=== PATIENT | female | born 1945 | race African-American/Black ===

== ENCOUNTER 2023-02-05 14:42 | Inpatient (IN) | payer MEDICARE, OTHER ==
[~2023-02-05] VITALS: Ht 157.5 cm; Wt 78.9 kg
[2023-02-05 15:59] LABS: BASOPHILS # (AUTO) 0.1 K/uL (0.0-0.2); BASOPHILS % (AUTO) 1.2 % (0.0-2.0); EOSINOPHILS # (AUTO) 0.1 K/uL (0.0-0.7); EOSINOPHILS % (AUTO) 1.4 % (0.0-6.0); HEMATOCRIT 37 % (33-45); HEMOGLOBIN 12.1 g/dL (11.5-14.8); LYMPHOCYTES # (AUTO) 1.3 K/uL (0.8-4.8); LYMPHOCYTES % (AUTO) 19.2 % (20.0-44.0); MEAN CORPUSCULAR HEMOGLOBIN 31 PG (26.0-33.0); MEAN CORPUSCULAR HGB CONC 33 g/dl (31.0-36.0); MEAN CORPUSCULAR VOLUME 93 fL (82-100); MONOCYTES # (AUTO) 0.8 K/uL (0.1-1.30); MONOCYTES % (AUTO) 11.1 % (2.0-12.0); NEUTROPHILS # (AUTO) 4.6 K/uL (1.8-8.9); NEUTROPHILS % (AUTO) 67.1 % (43.0-81.0); PLATELET COUNT (AUTO) 230 K/uL (150-450); RED BLOOD CELL COUNT(AUTO) 3.96 MIL/uL (4.0-5.2); RED CELL DISTRIBUTION WIDTH 15.5 % (11.5-15.0); WHITE BLOOD COUNT (AUTO) 6.9 K/uL (4.3-11.0)
[2023-02-05 16:14] LABS: INR 1.16 (0.91-1.10); PROTHROMBIN TIME 12.1 SECS (9.2-11.1)
[2023-02-05 16:34] LABS: MAGNESIUM 1.7 mg/dL (1.8-2.4)
[2023-02-05 16:42] LABS: LACTIC ACID 1.2 mmol/L (0.4-2.0)
[2023-02-05 16:49] LABS: THYROID STIMULATING HORMONE 1.758 uIU/mL (0.358-3.74)
[2023-02-05 16:54] LABS: ALANINE AMINOTRANSFERASE 135 U/L (12-78); ALBUMIN 3.2 g/dL (3.4-5.0); ALKALINE PHOSPHATASE 105 U/L (46-116); ASPARTATE AMINOTRANSFERASE 85 U/L (15-37); BILIRUBIN,DIRECT 0.1 mg/dL (0.0-0.2); BILIRUBIN,TOTAL 0.5 mg/dL (0.2-1.0); CALCIUM, SERUM 9.2 mg/dL (8.5-10.1); CARBON DIOXIDE 21 mmol/L (21-32); CREATININE 1.2 mg/dL (0.6-1.3); GLUCOSE 148 mg/dL (74-106); NT-PRO BNP 3276 pg/mL (0-125); TOTAL PROTEIN, SERUM 6.4 g/dL (6.4-8.2); UREA NITROGEN, BLOOD 19 mg/dL (7-18)
[2023-02-05 17:22] LABS: CHLORIDE 108 mmol/L (98-107); POTASSIUM 3.3 mmol/L (3.5-5.1); SODIUM SERUM 143 mmol/L (136-145)
[2023-02-05] MEDS ORDERED: FUROSEMIDE 40 MG/4 ML VIAL IV ONE (18:00)
[2023-02-05] MEDS ORDERED: SERT100T PO (18:18)
[2023-02-05] MEDS ORDERED: FURO20TA4 PO (18:18)
[2023-02-05] MEDS ORDERED: POTA10TA10 PO (18:18)
[2023-02-05] MEDS ORDERED: APIX5TAB PO (18:18)
[2023-02-05] MEDS ORDERED: METO25TA6 PO (18:18)
[2023-02-05] MEDS ORDERED: ROSU40TA PO (18:18)
[2023-02-05] MEDS ORDERED: FUROSEMIDE 40 MG/4 ML VIAL ONE (18:30)
[2023-02-05] MEDS ORDERED: MAG HYDROX/AL HYDROX/SIMETH 30 ML UDC PO PRN (21:00)
[2023-02-05] MEDS ORDERED: MAGNESIUM HYDROXIDE 30 ML UDC PO PRN (21:00)
[2023-02-05] MEDS ORDERED: Z GUARD REMEDY 4 OZ OINT TP PRN (21:00)
[2023-02-05] MEDS ORDERED: ONDANSETRON HCL/PF 4 MG/2 ML VIAL IVP PRN (21:00)
[2023-02-05] MEDS ORDERED: ZOLPIDEM TARTRATE 5 MG TABLET PO PRN (21:00)
[2023-02-05] MEDS ORDERED: ACETAMINOPHEN 325 MG TABLET PO PRN (21:00)
[2023-02-05 22:58] VITALS: BP 134/85; TEMP 97.2; O2SAT 98
[2023-02-06 08:00] VITALS: BP 155/111; TEMP 98.2; O2SAT 98
[2023-02-06] MEDS: METOPROLOL TARTRATE 50 MG TABLET PO SCH ×2 (08:18→17:58)
[2023-02-06] MEDS: SERTRALINE HCL 50 MG TABLET PO SCH (08:18)
[2023-02-06] MEDS: APIXABAN 5 MG TABLET PO SCH ×2 (08:19→17:55)
[2023-02-06 08:33] LABS: BASOPHILS # (AUTO) 0.1 K/uL (0.0-0.2); EOSINOPHILS # (AUTO) 0.1 K/uL (0.0-0.7); EOSINOPHILS % (AUTO) 1.6 % (0.0-6.0); HEMATOCRIT 37 % (33-45); HEMOGLOBIN 12.4 g/dL (11.5-14.8); LYMPHOCYTES # (AUTO) 1.5 K/uL (0.8-4.8); LYMPHOCYTES % (AUTO) 19.8 % (20.0-44.0); MEAN CORPUSCULAR HEMOGLOBIN 31 PG (26.0-33.0); MEAN CORPUSCULAR HGB CONC 33 g/dl (31.0-36.0); MEAN CORPUSCULAR VOLUME 93 fL (82-100); MONOCYTES # (AUTO) 0.9 K/uL (0.1-1.30); MONOCYTES % (AUTO) 11.5 % (2.0-12.0); NEUTROPHILS % (AUTO) 66.1 % (43.0-81.0); PLATELET COUNT (AUTO) 200 K/uL (150-450); RED CELL DISTRIBUTION WIDTH 15.6 % (11.5-15.0); WHITE BLOOD COUNT (AUTO) 7.5 K/uL (4.3-11.0)
[2023-02-06 08:52] LABS: CALCIUM, SERUM 9.7 mg/dL (8.5-10.1); CARBON DIOXIDE 22 mmol/L (21-32); CHLORIDE 106 mmol/L (98-107); GLUCOSE 137 mg/dL (74-106); MAGNESIUM 1.7 mg/dL (1.8-2.4); PHOSPHORUS 4.2 mg/dL (2.5-4.9); POTASSIUM 3.2 mmol/L (3.5-5.1); SODIUM SERUM 143 mmol/L (136-145); UREA NITROGEN, BLOOD 22 mg/dL (7-18)
[2023-02-06] MEDS ORDERED: CARVEDILOL 12.5 MG TABLET PO SCH (09:00)
[2023-02-06] MEDS ORDERED: FUROSEMIDE 40 MG/4 ML VIAL IV SCH (09:00)
[2023-02-06] MEDS: FUROSEMIDE 40 MG/4 ML VIAL IV SCH ×3 (09:23→17:58)
[2023-02-06] MEDS: POTASSIUM CHLORIDE 20 MEQ TAB.PRT.SR PO SCH ×3 (09:23→11:25)
[2023-02-06] MEDS ORDERED: POTASSIUM CHLORIDE 20 MEQ TAB.PRT.SR PO SCH (11:00)
[2023-02-06] MEDS ORDERED: MAGNESIUM OXIDE 400 MG TABLET PO ONE (11:00)
[2023-02-06 12:00] VITALS: BP 113/85; TEMP 98.4; O2SAT 98
[2023-02-06 16:00] VITALS: BP 111/88; TEMP 98.1; O2SAT 98
[2023-02-06 16:36] LABS: APPEARANCE,URINE CLEAR (CLEAR); BILIRUBIN,URINE NEGATIVE (NEGATIVE); BLOOD, URINE NEGATIVE Ery/uL (NEGATIVE); COLOR,URINE YELLOW (YELLOW); KETONES,URINE NEGATIVE (NEGATIVE); LEUKOCYTE ESTERASE ,URINE NEGATIVE (NEGATIVE); NITRITE, URINE NEGATIVE (NEGATIVE); PH,URINE 5.5 (5.0-8.0); PROTEIN,URINE NEGATIVE (NEGATIVE); UGLUCOSE NEGATIVE (NEGATIVE); UROBILINOGEN,URINE 0.2 EU/dL (0.2)
[2023-02-06] MEDS ORDERED: ATORVASTATIN 40 MG TABLET PO SCH (18:00)
[2023-02-06 20:00] VITALS: BP 106/60; TEMP 98; O2SAT 100
[2023-02-07] VITALS: BP 110/65; TEMP 98; O2SAT 100
[2023-02-07 04:00] VITALS: BP 134/106; TEMP 97.9; O2SAT 100
[2023-02-07 07:11] LABS: BASOPHILS # (AUTO) 0.1 K/uL (0.0-0.2); BASOPHILS % (AUTO) 1.1 % (0.0-2.0); EOSINOPHILS # (AUTO) 0.1 K/uL (0.0-0.7); EOSINOPHILS % (AUTO) 2.3 % (0.0-6.0); HEMATOCRIT 34 % (33-45); HEMOGLOBIN 11.3 g/dL (11.5-14.8); LYMPHOCYTES # (AUTO) 1.2 K/uL (0.8-4.8); LYMPHOCYTES % (AUTO) 20.1 % (20.0-44.0); MEAN CORPUSCULAR HEMOGLOBIN 31 PG (26.0-33.0); MEAN CORPUSCULAR HGB CONC 33 g/dl (31.0-36.0); MEAN CORPUSCULAR VOLUME 93 fL (82-100); MONOCYTES # (AUTO) 0.7 K/uL (0.1-1.30); NEUTROPHILS # (AUTO) 3.8 K/uL (1.8-8.9); NEUTROPHILS % (AUTO) 64.5 % (43.0-81.0); PLATELET COUNT (AUTO) 195 K/uL (150-450); RED CELL DISTRIBUTION WIDTH 15.8 % (11.5-15.0); WHITE BLOOD COUNT (AUTO) 5.8 K/uL (4.3-11.0)
[2023-02-07 07:35] LABS: ALBUMIN 2.9 g/dL (3.4-5.0); BILIRUBIN,TOTAL 0.5 mg/dL (0.2-1.0); CALCIUM, SERUM 9.3 mg/dL (8.5-10.1); MAGNESIUM 1.7 mg/dL (1.8-2.4); PHOSPHORUS 3.7 mg/dL (2.5-4.9); POTASSIUM 3.4 mmol/L (3.5-5.1); TOTAL PROTEIN, SERUM 5.9 g/dL (6.4-8.2)
[2023-02-07 08:00] VITALS: BP 111/67; TEMP 98.5; O2SAT 100
[2023-02-07] MEDS: SERTRALINE HCL 50 MG TABLET PO SCH (08:28)
[2023-02-07] MEDS: METOPROLOL TARTRATE 50 MG TABLET PO SCH ×2 (08:29→17:18)
[2023-02-07] MEDS ORDERED: AMIODARONE 150 MG in IV D5W 100 ML IV ONE (08:30)
[2023-02-07] MEDS ORDERED: AMIODARONE 450 MG in IV D5W 250 ML IV PRN (08:30)
[2023-02-07] MEDS: APIXABAN 5 MG TABLET PO SCH ×2 (08:30→17:18)
[2023-02-07] MEDS ORDERED: AMIODARONE 450 MG in IV D5W 241 ML IV PRN (09:00)
[2023-02-07] MEDS ORDERED: POTASSIUM CHLORIDE 20 MEQ TAB.PRT.SR PO SCH (11:30)
[2023-02-07] MEDS ORDERED: MAGNESIUM OXIDE 400 MG TABLET PO ONE (11:30)
[2023-02-07 12:00] VITALS: BP 130/87; TEMP 98.7; O2SAT 95
[2023-02-07 16:00] VITALS: BP 106/75; TEMP 98.6; O2SAT 96
[2023-02-07 20:00] VITALS: BP 136/83; TEMP 99; O2SAT 98
[2023-02-08] VITALS (18 sets, daily range): BP systolic 114–162; BP diastolic 56–117; TEMP 98–98.8; O2SAT 98–100
[2023-02-08 07:45] LABS: CALCIUM, SERUM 9.4 mg/dL (8.5-10.1); CREATININE 1.1 mg/dL (0.6-1.3); MAGNESIUM 1.8 mg/dL (1.8-2.4); POTASSIUM 3.6 mmol/L (3.5-5.1)
[2023-02-08] MEDS: SERTRALINE HCL 50 MG TABLET PO SCH (09:33)
[2023-02-08] MEDS: METOPROLOL TARTRATE 50 MG TABLET PO SCH ×2 (09:33→17:30)
[2023-02-08] MEDS: APIXABAN 5 MG TABLET PO SCH ×2 (09:34→17:32)
[2023-02-08] MEDS ORDERED: ANESTHESIA TRAY IN PYXIS 1 EA TRAY MC ONE (12:39)
[2023-02-08] MEDS: AMIODARONE HCL 200 MG TABLET PO SCH ×2 (13:16→17:30)
[2023-02-09] VITALS: BP_SYST 139; BP_SYST 93; BP_DIAS 48; BP_DIAS 87; TEMP 98; O2SAT 98
[2023-02-09 04:00] VITALS: BP 135/87; TEMP 98; O2SAT 98
[2023-02-09 08:00] VITALS: BP 119/58; TEMP 97.5; O2SAT 99
[2023-02-09] MEDS: APIXABAN 5 MG TABLET PO SCH (09:04)
[2023-02-09] MEDS: SERTRALINE HCL 50 MG TABLET PO SCH (09:05)
[2023-02-09] MEDS: AMIODARONE HCL 200 MG TABLET PO SCH ×2 (09:06→12:15)
[2023-02-09] MEDS ORDERED: AMIO200T5 PO ×2 (11:56→12:08)
[2023-02-09 12:00] VITALS: BP 144/81; TEMP 98.3; O2SAT 100
[2023-02-09] MEDS ORDERED: POTA10CA43 PO (12:08)
[2023-02-09] MEDS ORDERED: SERT100T PO (12:08)
[2023-02-09] MEDS ORDERED: FURO-145 PO (12:08)
[2023-02-09] MEDS ORDERED: APIX5TAB4 PO (12:08)
[2023-02-09] MEDS ORDERED: ROSU40TA PO (12:08)
[2023-02-09 12:15] VITALS: BP 144/79
== END 2023-02-09 16:10 | disposition home or self-care (01) | DRG 291 ==
LOC: ER 14:45 → TELE1 19:27 → TELE-TD 02-07 19:23 → ICU 02-08 11:20 → TELE1 02-08 15:51
PROVIDERS: ADMIT Nurse Practitioner Acute Care; ATTEND Nurse Practitioner Acute Care
PROC: 05HB33Z Insertion of Infusion Device into Right Basilic Vein, Percutaneous Approach (ICD-10-PCS; principal; 2023-02-08)
PROC: 5A2204Z Restoration of Cardiac Rhythm, Single (ICD-10-PCS; 2023-02-09)
DX: I11.0 Hypertensive heart disease with heart failure (principal); I50.23 Acute on chronic systolic (congestive) heart failure; J96.01 Acute respiratory failure with hypoxia; E44.1 Mild protein-calorie malnutrition; I48.92 Unspecified atrial flutter; E88.09 Other disorders of plasma-protein metabolism, not elsewhere classified; Z95.0 Presence of cardiac pacemaker; Z79.899 Other long term (current) drug therapy; Z79.01 Long term (current) use of anticoagulants; I25.10 Atherosclerotic heart disease of native coronary artery without angina pectoris; Z95.1 Presence of aortocoronary bypass graft; E87.6 Hypokalemia; R74.01 Elevation of levels of liver transaminase levels; E78.5 Hyperlipidemia, unspecified; Z91.148 Patient's other noncompliance with medication regimen for other reason; Z87.891 Personal history of nicotine dependence; E66.9 Obesity, unspecified; Z68.33 Body mass index [BMI] 33.0-33.9, adult; G47.33 Obstructive sleep apnea (adult) (pediatric); E83.42 Hypomagnesemia; F32.A Depression, unspecified; Z87.440 Personal history of urinary (tract) infections; R73.9 Hyperglycemia, unspecified; I48.0 Paroxysmal atrial fibrillation
CPT/HCPCS: 36415; 71045-TC; 80048-TC; 80053-TC; 80076-TC; 83605-TC; 83735-TC; 83880; 84100-TC; 84439-TC; 84443-TC; 84484-TC; 85025-TC; 85730-TC; 93307-TC; 93970-TC; A4223; G0378; J0282; J1940; J2704; J3490; J7030; J7040; J7060